=== PATIENT | female | born 1950 | race Caucasian/White ===

== ENCOUNTER 2023-01-19 17:25 | Emergency (ER) | payer MEDICARE, OTHER ==
[~2023-01-19] VITALS: Ht 154.9 cm; Wt 60.0 kg
[2023-01-19 17:38] VITALS: TEMP 97.7
[2023-01-19 19:42] VITALS: BP 142/77; PULSE 81
== END 2023-01-19 19:42 | disposition home or self-care (01) ==
LOC: COL.ER 17:25
DX: S01.111A Laceration without foreign body of right eyelid and periocular area, initial encounter (principal); S50.311A Abrasion of right elbow, initial encounter; S60.511A Abrasion of right hand, initial encounter; Z23 Encounter for immunization; W01.198A Fall on same level from slipping, tripping and stumbling with subsequent striking against other object, initial encounter